=== PATIENT | female | born 1975 | race Two or more races ===

== ENCOUNTER 2022-09-13 09:43 | Inpatient (IN) | payer SELFPAY ==
[~2022-09-13] VITALS: Ht 160 cm; Wt 70.0 kg
[2022-09-13 10:03] LABS: INR 1.5 (0.9-1.15)
[2022-09-13] MEDS ORDERED: SUMAtriptan SUCCINATE 6 MG/0.5 ML VL SC ONE (11:15)
[2022-09-14] MEDS ORDERED: CAPTOPRIL 25 MG TAB PO SCH (10:00)
[2022-09-14] MEDS ORDERED: DIGOXIN 0.25 MG TAB PO SCH (10:00)
[2022-09-14] MEDS ORDERED: AMIODARONE HCL 200 MG TAB PO SCH (10:00)
== END 2022-09-13 12:48 | disposition home or self-care (01) | DRG 282 ==
LOC: EAST 09:43
PROVIDERS: ADMIT Internal Medicine Geriatric Medicine; ATTEND Internal Medicine Geriatric Medicine
DX: I21.9 Acute myocardial infarction, unspecified (principal)
CPT/HCPCS: 36415; 82565; 85049; 85610; G0378